=== PATIENT | male | born 1980 | race Two or more races ===

== ENCOUNTER 2023-03-30 10:56 | Inpatient (IN) | payer MEDICAID ==
[2023-03-30] VITALS (25 sets, daily range): BP systolic 126–151; BP diastolic 70–111; PULSE 70–135; RESP 12–23; TEMP 98.5; O2SAT 89–99
[~2023-03-30] VITALS: Ht 182.9 cm; Wt 132.0 kg
[2023-03-30 11:17] LABS: Basophils # (auto) 0.1 10 ^3/uL (0-0.2); Eosinophils # (auto) 0.1 10 ^3/uL (0-0.8); Hemoglobin 18.2 g/dL (13.5-17.5); Lymphocytes # (auto) 2.8 10 ^3/uL (0.4-5.4); Neutrophils % (auto) 66.3 % (37.0-80.0); Red Cell Distribution Width 13.2 % (11.8-14.3)
[2023-03-30 11:20] LABS: Basophils % (auto) 0.6 % (0.0-2.0); Eosinophils % (auto) 0.8 % (0.0-7.0); Hematocrit 54.1 % (41.0-53.0); Lymphocytes % (auto) 26.4 % (10.0-50.0); Mean Corpuscular Hemoglobin 29.8 pg (28.0-32.0); Mean Corpuscular Hgb Conc. 33.6 g/dL (32.0-36.0); Mean Corpuscular Volume 88.9 fL (80.0-100.0); Monocytes # (auto) 0.6 10 ^3/uL (0-1.3); Monocytes % (auto) 5.9 % (0.0-12.0); Neutrophils # (auto) 7.1 10 ^3/uL (1.6-8.6); Nucleated Red Blood Cells % 0.7 %; Red Blood Cells 6.09 10^6/uL (4.5-5.90); White Blood Cell 10.7 10^3/uL (4.4-10.8)
[2023-03-30 11:38] LABS: Albumin 4.2 g/dL (3.4-5.0); Calcium 9.3 mg/dL (8.5-10.1); Potassium 4.5 mmol/L (3.5-5.1)
[2023-03-30 11:42] LABS: BUN/Creatinine Ratio 9.7 (10.0-20.0); Bilirubin, Total 1.4 mg/dL (0.2-1.0)
[2023-03-30] MEDS ORDERED: ENOXAPARIN SOD 100 MG/1 ML SYRINGE SC ONE (12:15)
[2023-03-30] MEDS ORDERED: AMIODARONE BOLUS KIT 100 ML IV ONE (13:30)
[2023-03-30] MEDS ORDERED: AMIODARONE 450mg/250ml AE 250 ML IV SCH ×2 (13:45→21:00)
[2023-03-30] MEDS ORDERED: ONDANSETRON HCL 4 MG/2 ML VIAL IV PRN (14:15)
[2023-03-30] MEDS ORDERED: ACETAMINOPHEN 325 MG TAB PO PRN (14:15)
[2023-03-30] MEDS ORDERED: HYDROcodone-ACET 5/325MG TAB PO PRN (14:15)
[2023-03-30] MEDS ORDERED: HYDROmorphone HCL 2 MG/ML VL/or syr IV PRN (14:15)
[2023-03-30] MEDS ORDERED: DOCUSATE SOD 100 MG CAP PO PRN (14:15)
[2023-03-30 14:59] LABS: Cholesterol 191 mg/dL (< 200)
[2023-03-30] MEDS: METOPROLOL TARTRATE 50 MG TAB PO SCH ×2 (15:00→21:41)
[2023-03-30 15:02] LABS: HDL Cholesterol 41 mg/dL (40-59); LDL Cholesterol 135 mg/dL (< 100); Triglycerides 142 mg/dL (< 150)
[2023-03-30 15:06] LABS: Urine Bacteria FEW /hpf (None Seen); Urine Blood Negative /uL (Negative); Urine Hyaline Cast FEW /lpf (0 - 2); Urine Mucus FEW (None Seen); Urine Specific Gravity 1.012 (1.001-1.035); Urine WBC 1 /hpf (0 - 3)
[2023-03-30 15:19] LABS: Creatinine, Urine 156 mg/dL (30.0-125.0); Sodium Urine 38 mmol/L (40-220)
[2023-03-30] MEDS: SODIUM CHLOR 0.9% PF (SALINE LOCK) 10ML VIAL/SYR IV SCH (21:42)
[2023-03-30] MEDS ORDERED: APIXABAN 5 MG TAB PO SCH (22:00)
[2023-03-31] VITALS (39 sets, daily range): BP systolic 111–150; BP diastolic 63–100; PULSE 62–106; RESP 9–21; TEMP 97.7–98.7; O2SAT 94–99
[2023-03-31] MEDS: SODIUM CHLOR 0.9% PF (SALINE LOCK) 10ML VIAL/SYR IV SCH ×3 (06:12→22:05)
[2023-03-31 07:44] LABS: Alcohol, Urine < 3.0 mg/dL (0-10); Amphetamine Screen, Urine NEGATIVE (NEGATIVE); Barbiturate Scree,Urine NEGATIVE (NEGATIVE); Benzodiazephine Screen, Urine NEGATIVE (NEGATIVE); Cannabinoid Screen, Urine NEGATIVE (NEGATIVE); Cocaine Screen, Urine NEGATIVE (NEGATIVE); Opiate Scree,Urine NEGATIVE (NEGATIVE); Phencyclidine Screen, Urine NEGATIVE (NEGATIVE)
[2023-03-31] MEDS: ASPirin 81 mg TAB PO SCH (10:10)
[2023-03-31] MEDS: METOPROLOL TARTRATE 50 MG TAB PO SCH ×2 (10:11→22:00)
[2023-03-31] MEDS ORDERED: AMIODARONE HCL 200 MG TAB PO ONE (10:30)
[2023-03-31] MEDS ORDERED: SOD CHL 0.45% 1,000 ML IV ONE (10:30)
[2023-03-31 10:43] LABS: Basophils # (auto) 0.1 10 ^3/uL (0-0.2); Basophils % (auto) 1.1 % (0.0-2.0); Eosinophils # (auto) 0.1 10 ^3/uL (0-0.8); Eosinophils % (auto) 1.2 % (0.0-7.0); Hematocrit 50.4 % (41.0-53.0); Lymphocytes # (auto) 2.2 10 ^3/uL (0.4-5.4); Lymphocytes % (auto) 28.7 % (10.0-50.0); Mean Corpuscular Hemoglobin 30.1 pg (28.0-32.0); Mean Corpuscular Hgb Conc. 33.7 g/dL (32.0-36.0); Mean Corpuscular Volume 89.3 fL (80.0-100.0); Monocytes # (auto) 0.4 10 ^3/uL (0-1.3); Monocytes % (auto) 4.8 % (0.0-12.0); Neutrophils % (auto) 64.2 % (37.0-80.0); Nucleated Red Blood Cells % 0.2 %; Red Blood Cells 5.64 10^6/uL (4.5-5.90); Red Cell Distribution Width 13.3 % (11.8-14.3); White Blood Cell 7.8 10^3/uL (4.4-10.8)
[2023-03-31] MEDS: LOSARTAN POTASSIUM 25 MG TAB PO SCH (10:45)
[2023-03-31 11:03] LABS: Albumin 3.4 g/dL (3.4-5.0); Calcium 8.7 mg/dL (8.5-10.1); Magnesium 2.5 mg/dL (1.6-2.6); Potassium 4.2 mmol/L (3.5-5.1)
[2023-03-31 11:06] LABS: Bilirubin, Total 1.2 mg/dL (0.2-1.0); Total Protein 6.8 g/dL (6.4-8.2)
[2023-03-31 11:47] LABS: INR 1.1 (0.9-1.15)
[2023-03-31] MEDS ORDERED: WARFARIN SODIUM 2 MG TAB PO ONE (17:00)
[2023-03-31] MEDS: ATORVASTATIN 20 MG TAB PO SCH (22:00)
[2023-03-31] MEDS: AMIODARONE HCL 200 MG TAB PO SCH (22:00)
[2023-04-01] VITALS (20 sets, daily range): BP systolic 111–136; BP diastolic 44–90; PULSE 62–88; RESP 12–20; TEMP 97.7–98.6; O2SAT 93–99
[2023-04-01 04:13] LABS: INR 1.09 (0.9-1.15)
[2023-04-01 04:14] LABS: Basophils # (auto) 0.1 10 ^3/uL (0-0.2); Basophils % (auto) 0.7 % (0.0-2.0); Eosinophils # (auto) 0.3 10 ^3/uL (0-0.8); Eosinophils % (auto) 2.9 % (0.0-7.0); Hemoglobin 16.7 g/dL (13.5-17.5); Lymphocytes % (auto) 42.1 % (10.0-50.0); Mean Corpuscular Hemoglobin 30.2 pg (28.0-32.0); Mean Corpuscular Hgb Conc. 34.1 g/dL (32.0-36.0); Mean Corpuscular Volume 88.7 fL (80.0-100.0); Monocytes # (auto) 0.7 10 ^3/uL (0-1.3); Monocytes % (auto) 7.4 % (0.0-12.0); Neutrophils # (auto) 4.4 10 ^3/uL (1.6-8.6); Neutrophils % (auto) 46.9 % (37.0-80.0); Nucleated Red Blood Cells % 0.2 %; Red Blood Cells 5.52 10^6/uL (4.5-5.90); White Blood Cell 9.4 10^3/uL (4.4-10.8)
[2023-04-01 04:25] LABS: Calcium 8.7 mg/dL (8.5-10.1); Potassium 3.9 mmol/L (3.5-5.1)
[2023-04-01 04:27] LABS: BUN/Creatinine Ratio 14.7 (10.0-20.0)
[2023-04-01] MEDS: SODIUM CHLOR 0.9% PF (SALINE LOCK) 10ML VIAL/SYR IV SCH ×3 (06:00→21:22)
[2023-04-01] MEDS ORDERED: ADENOSINE 111 MG in GIVE UN-DILUTED 0 ML IV STA (07:59)
[2023-04-01] MEDS: AMIODARONE HCL 200 MG TAB PO SCH ×2 (11:28→21:19)
[2023-04-01] MEDS: METOPROLOL TARTRATE 50 MG TAB PO SCH ×2 (11:28→21:20)
[2023-04-01] MEDS: LOSARTAN POTASSIUM 25 MG TAB PO SCH (11:28)
[2023-04-01] MEDS: ASPirin 81 mg TAB PO SCH (11:28)
[2023-04-01] MEDS ORDERED: WARFARIN SODIUM 2 MG TAB PO ONE (17:00)
[2023-04-01] MEDS: ATORVASTATIN 20 MG TAB PO SCH (21:19)
[2023-04-02 05:00] VITALS: BP 115/75; PULSE 62; RESP 18; TEMP 98.2; O2SAT 98
[2023-04-02] MEDS: SODIUM CHLOR 0.9% PF (SALINE LOCK) 10ML VIAL/SYR IV SCH ×2 (05:03→14:45)
[2023-04-02 07:12] LABS: INR 1.11 (0.9-1.15); Partial Thromboplastin Time 29.2 SEC (24.5-34.5)
[2023-04-02 08:00] VITALS: PULSE 63; PULSE 65; RESP 14; O2SAT 2
[2023-04-02 09:11] VITALS: BP 127/89; PULSE 63; RESP 14; TEMP 97.6; O2SAT 100
[2023-04-02] MEDS: METOPROLOL TARTRATE 50 MG TAB PO SCH (09:15)
[2023-04-02] MEDS: LOSARTAN POTASSIUM 25 MG TAB PO SCH (09:16)
[2023-04-02] MEDS: AMIODARONE HCL 200 MG TAB PO SCH (09:16)
[2023-04-02] MEDS: ASPirin 81 mg TAB PO SCH (09:17)
[2023-04-02 13:06] VITALS: BP 127/83; PULSE 64; RESP 13; TEMP 98.6; O2SAT 97
[2023-04-02] MEDS ORDERED: WARF-66 PO (13:38)
[2023-04-02] MEDS ORDERED: LOS25T PO (13:38)
[2023-04-02] MEDS ORDERED: MET50T PO (13:38)
[2023-04-02] MEDS ORDERED: AMIO200T33 PO (13:38)
[2023-04-02] MEDS ORDERED: ATOR20TA50 PO (13:38)
[2023-04-02 14:41] VITALS: BP 117/80; PULSE 66; TEMP 37
[2023-04-02] MEDS ORDERED: WARFARIN SODIUM 2 MG TAB PO ONE (17:00)
[2023-04-02 17:11] VITALS: BP 115/70; PULSE 65; RESP 15; TEMP 97.9; O2SAT 100
== END 2023-04-02 19:02 | disposition home or self-care (01) | DRG 201 ==
LOC: ER 10:56 → TELE 14:16 → ICU WEST 16:01 → TELE-WESTW 04-01 20:37
PROVIDERS: ADMIT Internal Medicine; ATTEND Internal Medicine
DX: I48.20 Chronic atrial fibrillation, unspecified (principal); N17.0 Acute kidney failure with tubular necrosis; I21.4 Non-ST elevation (NSTEMI) myocardial infarction; D68.69 Other thrombophilia; I16.1 Hypertensive emergency; E66.01 Morbid (severe) obesity due to excess calories; E78.5 Hyperlipidemia, unspecified; I10 Essential (primary) hypertension; Q21.12 Patent foramen ovale; J45.909 Unspecified asthma, uncomplicated; Z68.39 Body mass index [BMI] 39.0-39.9, adult; Z79.01 Long term (current) use of anticoagulants; Z79.899 Other long term (current) drug therapy; Z82.3 Family history of stroke; Z86.73 Personal history of transient ischemic attack (TIA), and cerebral infarction without residual deficits; Z91.148 Patient's other noncompliance with medication regimen for other reason; Z86.718 Personal history of other venous thrombosis and embolism; Z91.199 Patient's noncompliance with other medical treatment and regimen due to unspecified reason
CPT/HCPCS: 36415; 71045; 78452; 80048; 80053; 80061; 80307; 81001; 82570; 83036; 83735; 83880; 84300; 84439; 84443; 84484; 85025; 85610; 85730; 87081; 93005; 93017; 93306; 96365; 96372; 99291; G0378; J0153

== ENCOUNTER 2024-01-07 20:10 | Inpatient (IN) | payer MEDICAID ==
[~2024-01-07] VITALS: Ht 182.9 cm; Wt 149.4 kg
[~2024-01-07 20:10] MED LIST: AMIO200T33 PO; ATOR20TA50 PO; LOS25T PO; MET50T PO; WARF-66 PO
[2024-01-07] MEDS: cloNIDine HCL 0.1 MG TAB PO ONE (20:38)
[2024-01-07 21:51] LABS: Basophils # (auto) 0 10 ^3/uL (0-0.2); Basophils % (auto) 0.2 % (0.0-2.0); Eosinophils # (auto) 0.2 10 ^3/uL (0-0.8); Eosinophils % (auto) 2.2 % (0.0-7.0); Hematocrit 44.7 % (41.0-53.0); Hemoglobin 15.1 g/dL (13.5-17.5); Lymphocytes % (auto) 32.1 % (10.0-50.0); Mean Corpuscular Hemoglobin 29.9 pg (28.0-32.0); Mean Corpuscular Hgb Conc. 33.8 g/dL (32.0-36.0); Mean Corpuscular Volume 88.5 fL (80.0-100.0); Monocytes # (auto) 0.7 10 ^3/uL (0-1.3); Monocytes % (auto) 7.3 % (0.0-12.0); Neutrophils # (auto) 5.5 10 ^3/uL (1.6-8.6); Neutrophils % (auto) 58.2 % (37.0-80.0); Nucleated Red Blood Cells % 0.1 %; Red Blood Cells 5.05 10^6/uL (4.5-5.90); Red Cell Distribution Width 13.5 % (11.8-14.3); White Blood Cell 9.5 10^3/uL (4.4-10.8)
[2024-01-07 22:14] LABS: Alanine Aminotransferase 29 U/L (7-40); Albumin 4.3 g/dL (3.2-4.8); Alkaline Phosphatase 82 U/L (46-116); Anion Gap 7 (5-15); Aspartate Aminotransferase 70 U/L (13-40); BUN/Creatinine Ratio 11.5 (10.0-20.0); Blood Urea Nitrogen 13 mg/dL (9-23); Calcium 9.4 mg/dL (8.5-10.1); Carbon Dioxide 28 mmol/L (20-30); Chloride 107 mmol/L (98-107); Glucose 91 mg/dL (74-106); Potassium 4.1 mmol/L (3.5-5.1); Sodium 142 mmol/L (136-145)
[2024-01-07 22:15] LABS: Bilirubin, Total 0.9 mg/dL (0.2-1.0); Total Protein 7.2 g/dL (5.7-8.2)
[2024-01-08] MEDS: ASPirin 81 mg TAB PO ONE (03:25)
[2024-01-08 03:40] VITALS: PULSE 76; RESP 18; O2SAT 97
[2024-01-08] MEDS ORDERED: TEMAZEPAM 15 MG CAP PO PRN (04:45)
[2024-01-08] MEDS ORDERED: ONDANSETRON HCL 4 MG/2 ML VIAL IV PRN (04:45)
[2024-01-08] MEDS ORDERED: MORPHINE SULFATE INJ 2 MG/ml SYRG IV PRN (04:45)
[2024-01-08] MEDS ORDERED: NITROGLYCERIN 0.4 MG SL TAB SL PRN (04:45)
[2024-01-08] MEDS ORDERED: ACETAMINOPHEN 325 MG TAB PO PRN (04:45)
[2024-01-08 05:35] LABS: INR 2.2 (0.9-1.15); Partial Thromboplastin Time 36.6 SEC (24.5-34.5)
[2024-01-08 06:33] VITALS: PULSE 64; RESP 20; O2SAT 95
[2024-01-08 08:00] VITALS: PULSE 61; RESP 13; O2SAT 88
[2024-01-08] MEDS: AMIODARONE HCL 200 MG TAB PO SCH (10:03)
[2024-01-08] MEDS: ASPirin 81 mg TAB PO SCH (10:03)
[2024-01-08] MEDS: LOSARTAN POTASSIUM 25 MG TAB PO SCH (10:04)
[2024-01-08] MEDS: METOPROLOL TARTRATE 50 MG TAB PO SCH (10:04)
[2024-01-08] MEDS: LOSARTAN POTASSIUM 50 MG TAB PO SCH (11:30)
[2024-01-08] MEDS: LOSARTAN POTASSIUM 25 MG TAB PO ONE (14:29)
[2024-01-08] MEDS: WARFARIN SODIUM 5 MG TAB PO ONE (16:53)
[2024-01-08 17:24] VITALS: BP 110/59; PULSE 59; RESP 18; TEMP 98.1; O2SAT 96
[2024-01-08 20:00] VITALS: PULSE 56
[2024-01-08 21:00] VITALS: BP 136/82; PULSE 62; RESP 18; TEMP 97.6; O2SAT 95
[2024-01-08] MEDS: ATORVASTATIN 20 MG TAB PO SCH (21:42)
[2024-01-09] VITALS (9 sets, daily range): BP systolic 133–181; BP diastolic 92–103; PULSE 56–66; RESP 16–19; TEMP 97.3–98.3; O2SAT 93–98
[2024-01-09 04:34] LABS: Urine Bacteria None Seen /hpf (None Seen)
[2024-01-09 04:45] LABS: Amphetamine Screen, Urine Neg (NEGATIVE); Barbiturate Scree,Urine Neg (NEGATIVE); Benzodiazephine Screen, Urine Neg (NEGATIVE); Urine Blood Negative /uL (Negative); Urine Clarity Clear (Clear); Urine Color Light-Yellow (Yellow); Urine Protein, UAD Negative (Negative); Urine Specific Gravity 1.024 (1.001-1.035); Urine Urobilinogen Normal (Negative); Urine WBC <1 /hpf (0 - 3)
[2024-01-09 04:46] LABS: Cannabinoid Screen, Urine Neg (NEGATIVE); Cocaine Screen, Urine Neg (NEGATIVE); Opiate Scree,Urine Neg (NEGATIVE); Phencyclidine Screen, Urine Neg (NEGATIVE)
[2024-01-09 06:33] LABS: Chloride 106 mmol/L (98-107); Potassium 4.2 mmol/L (3.5-5.1); Sodium 138 mmol/L (136-145)
[2024-01-09 06:34] LABS: Anion Gap 5 (5-15); Calcium 8.9 mg/dL (8.7-10.4); Carbon Dioxide 27 mmol/L (20-30)
[2024-01-09 06:38] LABS: INR 2.09 (0.9-1.15); Partial Thromboplastin Time 34.5 SEC (24.5-34.5)
[2024-01-09 06:39] LABS: BUN/Creatinine Ratio 15.8 (10.0-20.0); Blood Urea Nitrogen 15 mg/dL (9-23); Glucose 94 mg/dL (74-106)
[2024-01-09] MEDS: METOPROLOL TARTRATE 25 MG TAB PO SCH (09:29)
[2024-01-09] MEDS: amLODIPine BESYLATE 5 MG TAB PO SCH (09:30)
[2024-01-09] MEDS ORDERED: AUG875T PO (12:24)
[2024-01-09] MEDS ORDERED: LOSA-534 PO (12:24)
[2024-01-09] MEDS ORDERED: AMLO1TAB23 PO (12:24)
[2024-01-09] MEDS ORDERED: MET25T PO (12:24)
[2024-01-09] MEDS: cefTRIAXone 1GM/50ML D5W 50 ML IV ONE ×2 (12:55→12:59)
[2024-01-09] MEDS: LOSARTAN POTASSIUM 50 MG TAB PO ONE (12:59)
[2024-01-09] MEDS: cloNIDine HCL 0.1 MG TAB PO PRN (14:29)
[2024-01-09] MEDS: WARFARIN SODIUM 2 MG TAB PO ONE (17:04)
[2024-01-10] MEDS ORDERED: hydroCHLOROthiazide 25 MG TAB PO SCH (10:00)
[2024-01-10] MEDS ORDERED: LOSARTAN POTASSIUM 50 MG TAB PO SCH (10:00)
[2024-01-10] MEDS ORDERED: amLODIPine BESYLATE 5 MG TAB PO SCH (10:00)
== END 2024-01-09 16:45 | disposition home or self-care (01) | DRG 199 ==
LOC: ER 20:10 → TELE 01-08 04:48 → TELE-WESTW 01-08 17:26
PROVIDERS: ADMIT Nurse Practitioner; ATTEND Internal Medicine Geriatric Medicine
DX: I16.0 Hypertensive urgency (principal); L03.116 Cellulitis of left lower limb; E66.01 Morbid (severe) obesity due to excess calories; I48.91 Unspecified atrial fibrillation; E78.5 Hyperlipidemia, unspecified; I10 Essential (primary) hypertension; J45.909 Unspecified asthma, uncomplicated; Z86.73 Personal history of transient ischemic attack (TIA), and cerebral infarction without residual deficits; Z79.01 Long term (current) use of anticoagulants; Z79.899 Other long term (current) drug therapy; Z86.718 Personal history of other venous thrombosis and embolism; Z68.41 Body mass index [BMI] 40.0-44.9, adult
CPT/HCPCS: 36415; 70450; 70551; 71045; 80048; 80053; 80307; 81001; 83605; 83880; 84484; 85025; 85379; 85610; 85730; 87040; 93306; 93970; G0378

== ENCOUNTER → 2024-01-27 | Outpatient (CLI) | payer MEDICAID ==
[~2024-01-27] MED LIST changes: +AMLO1TAB23 PO; +AUG875T PO; -LOS25T PO; +LOSA-534 PO; +MET25T PO; -MET50T PO
[2024-01-27 10:35] LABS: INR 2.42 (0.9-1.15)
[2024-01-27 11:10] LABS: Anion Gap 4 (5-15); Carbon Dioxide 28 mmol/L (20-30); Chloride 107 mmol/L (98-107); Potassium 4.1 mmol/L (3.5-5.1); Sodium 139 mmol/L (136-145)
[2024-01-27 11:11] LABS: Calcium 9.4 mg/dL (8.5-10.1)
[2024-01-27 11:15] LABS: Glucose 101 mg/dL (74-106)
[2024-01-27 11:16] LABS: BUN/Creatinine Ratio 8.1 (10.0-20.0); Blood Urea Nitrogen 8 mg/dL (9-23)
== END | disposition home or self-care (01) ==
LOC: LAB 10:09
PROVIDERS: ATTEND Internal Medicine
DX: I48.91 Unspecified atrial fibrillation (principal); D68.69 Other thrombophilia; I16.1 Hypertensive emergency; Z86.73 Personal history of transient ischemic attack (TIA), and cerebral infarction without residual deficits
CPT/HCPCS: 36415; 80048; 85610